=== PATIENT | female | born 1990 | race Caucasian/White ===

== ENCOUNTER 2016-05-23 17:45 | Emergency (ER) | payer MEDICAID ==
[~2016-05-23] VITALS: Ht 172.7 cm; Wt 66.4 kg
[~2016-05-23 17:45] MED LIST: ADVIL200 MG PO; AMOXICILLIN 50500 MG PO; ANAPROX DS550 MG PO; ANXIETY MED; ATIVAN 0.50.5 MG/TAB PO; BACTRIM DS 8001 TAB PO; BCP TD; BUSPAR5 MG PO; CEPHALEXIN500 M1 PO; CLARITIN 1010 MG/TAB; CLEOCIN HC150 MG/CAP PO; DOXYCYCLINE 10100 MG PO; FERROUS SULFATE65 MG PO; FLEXERIL 1010 MG/TAB PO; IBU-6600 MG PO; IRON325 M1 PO; LIORESAL 1010 MG/TAB PO; LORTAB 5/500 501 TAB PO; MOBIC15 MG PO; NAPROSYN500 MG PO; NAPROXEN EC500 MG PO; NAPROXEN250 MG PO; NO HOME MEDICATIONS; NORCO 325 MG-51 TAB PO; PEN-VEE K500 MG PO; PENICILLIN250 MG PO; PERCOCET 325 MG1 TA2 PO; PHENERGAN 25 TA25 MG PO; PHENERGAN W/CO120 ML PO; POLYMYXIN B/TRIMETH OU; PREDNISONE20 MG PO; PRENATAL1 TA1 PO; SENOKOT S 50 MG1 TAB PO; SPRINTEC 35 MCG1 TAB PO; TUSS PO; TYLENOL W/COD1 UDTAB PO; ULTRAM 50MG TAB50 MG PO; VIBRID PO; VICODIN 5/5001 UDTAB PO; VIIBRYD20 MG PO; XANAX 0.5MG0.5 MG PO; ZITHROMAX 250M250 MG PO; ZOFRAN 4MG T4 MG/TAB PO; ZOVIRAX5% TP; ZOVIRAX800 MG PO; vybrid PO
[2016-05-23 18:14] VITALS: BP 121/71; TEMP 98.5
[2016-05-23] MEDS ORDERED: IBU800 M1 PO (18:24)
[2016-05-23] MEDS ORDERED: VOLTAREN 75 DR75 MG PO (19:09)
[2016-05-23] MEDS ORDERED: NORCO 325 MG-51 TAB PO (19:09)
[2016-05-23 19:30] VITALS: PULSE 92
== END 2016-05-23 19:31 | disposition home or self-care (01) ==
LOC: COL.ER 17:45
DX: S32.2XXA Fracture of coccyx, initial encounter for closed fracture (principal); W00.2XXA Other fall from one level to another due to ice and snow, initial encounter

== ENCOUNTER 2016-06-13 17:37 | Emergency (ER) | payer MEDICAID ==
[~2016-06-13] VITALS: Ht 172.7 cm; Wt 68.2 kg
[~2016-06-13 17:37] MED LIST changes: +IBU800 M1 PO; +VOLTAREN 75 DR75 MG PO
[2016-06-13 17:38] VITALS: BP 103/66; TEMP 98.2
[2016-06-13] MEDS ORDERED: AMOXICILLIN 50500 MG PO (18:02)
[2016-06-13] MEDS ORDERED: ULTRAM 50MG TAB50 MG PO (18:02)
[2016-06-13 18:13] VITALS: PULSE 72
== END 2016-06-13 18:17 | disposition home or self-care (01) ==
LOC: COL.ER 17:37
DX: K08.89 Other specified disorders of teeth and supporting structures (principal)

== ENCOUNTER 2016-09-07 17:05 | Emergency (ER) | payer SELFPAY ==
[~2016-09-07] VITALS: Ht 172.7 cm; Wt 68.2 kg
[2016-09-07 17:07] VITALS: TEMP 98.5
[2016-09-07 17:54] VITALS: BP 131/73; PULSE 98
== END 2016-09-07 18:03 | disposition home or self-care (01) ==
LOC: COL.ER 17:05
DX: S53.402A Unspecified sprain of left elbow, initial encounter (principal); X50.0XXA Overexertion from strenuous movement or load, initial encounter; Y92.830 Public park as the place of occurrence of the external cause; F17.210 Nicotine dependence, cigarettes, uncomplicated

== ENCOUNTER 2016-09-13 17:01 | Emergency (ER) | payer SELFPAY ==
[~2016-09-13] VITALS: Ht 172.7 cm; Wt 68.2 kg
[2016-09-13 17:04] VITALS: BP 122/64; TEMP 97.8
[2016-09-13] MEDS ORDERED: FLEXERIL 1010 MG/TAB PO (17:52)
[2016-09-13 17:54] LABS: PH 6 (5-8); SQUAMOUS EPITHELIAL 0-2 /hpf; URINE APPEARANCE Clear; URINE BACTERIA None Seen /hpf; URINE BILIRUBIN Negative (NEGATIVE); URINE BLOOD 1+ (NEGATIVE); URINE COLOR Yellow; URINE GLUCOSE Negative (NEGATIVE); URINE KETONE Negative (NEGATIVE); URINE UROBILINOGEN Negative (NEGATIVE); URINE WBC 0-2 /hpf
[2016-09-13 18:14] VITALS: PULSE 90
== END 2016-09-13 18:14 | disposition home or self-care (01) ==
LOC: COL.ER 17:01
PROVIDERS: Emergency Medicine
DX: S39.011A Strain of muscle, fascia and tendon of abdomen, initial encounter (principal); X58.XXXA Exposure to other specified factors, initial encounter
CPT/HCPCS: J1885

== ENCOUNTER 2016-11-07 01:02 | Emergency (ER) | payer SELFPAY ==
[~2016-11-07] VITALS: Ht 172.7 cm; Wt 68.2 kg
[2016-11-07 01:04] VITALS: TEMP 98.2
[2016-11-07] MEDS ORDERED: NATURAL IRON65 MG PO (01:07)
[2016-11-07 01:44] LABS: BASO % 0.3 % (0.0-2.0); EOS # 0.2 (0.0-0.7); EOS % 1.4 % (0-4.0); GRAN # 6.7 (1.4-6.5); GRAN % 56.1 % (42.2-75.2); LYMPH # 4.3 (1.2-3.4); LYMPH % 36.3 % (20.0-51.0); MEAN CELL VOLUME 91 fl (80.0-100.0); MEAN CORPUSCULAR HGB CONC 34 g/dl (33.0-37.0); MEAN PLATELET VOLUME 9.5 fl (7.4-10.4); MONO # 0.7 (0.1-0.6); MONO % 5.6 % (1.7-9.3); PLATELET COUNT 236 K/mm3 (130-400); REDCELL DISTRIBUTION WIDTH-CV 12.5 % (11.5-14.5); WHITE BLOOD COUNT 11.9 K/mm3 (4.8-10.8)
[2016-11-07 01:45] LABS: HEMATOCRIT 33.7 % (37.0-47.0); HEMOGLOBIN 11.6 g/dl (12.5-16.0); MEAN CORPUSCULAR HEMOGLOBIN 31 pg (27.0-31.0)
[2016-11-07 01:54] LABS: ADJUSTED CALCIUM 9.5 mg/dL (8.4-10.2); ALANINE AMINOTRANSFERASE 25 U/L (9-52); ALBUMIN 4.5 gm/dL (3.5-5.0); ALKALINE PHOSPHATASE 78 U/L (50-136); ANION GAP 13 mmol/L (7-16); BILIRUBIN,TOTAL 0.3 mg/dL (0.0-1.0); BLOOD UREA NITROGEN 14 mg/dL (7-17); CALCIUM 9.9 mg/dL (8.4-10.2); CARBON DIOXIDE 20 mmol/L (22-30); CHLORIDE 105 mmol/L (98-107); CREATININE, serum 0.68 mg/dL (0.52-1.25); GLUCOSE 98 mg/dL (74-106); POTASSIUM 3.4 mmol/L (3.4-5.0); SODIUM 138 mmol/L (137-145); TOTAL PROTEIN 7.4 gm/dL (6.4-8.2)
[2016-11-07 02:10] LABS: TROPONIN-I < 0.012 ng/mL (0.000-0.034)
[2016-11-07 02:15] LABS: AMPHETAMINE URINE NEGATIVE; BARBITURATES URINE NEGATIVE; BENZODIAZEPINES URINE NEGATIVE; BUPRENORPHINE URINE NEGATIVE; METHADONE URINE NEGATIVE; OPIATES URINE NEGATIVE; OXYCODONE URINE POSITIVE; PHENCYCLIDINE URINE NEGATIVE; PROPOXYPHENE URINE NEGATIVE; THC CANNABINOIDS URINE NEGATIVE
[2016-11-07 03:07] VITALS: BP 109/58; PULSE 69
== END 2016-11-07 03:07 | disposition home or self-care (01) ==
LOC: COL.ER 01:02
PROVIDERS: Physician Assistant Medical
DX: F41.9 Anxiety disorder, unspecified (principal); R00.2 Palpitations; G89.29 Other chronic pain; M25.559 Pain in unspecified hip; M25.569 Pain in unspecified knee; F17.210 Nicotine dependence, cigarettes, uncomplicated

== ENCOUNTER 2016-11-14 01:29 | Emergency (ER) | payer MEDICAID ==
[~2016-11-14] VITALS: Ht 172.7 cm; Wt 68.2 kg
[~2016-11-14 01:29] MED LIST changes: +NATURAL IRON65 MG PO
[2016-11-14 01:30] VITALS: BP 123/60; PULSE 93; TEMP 98.1
[2016-11-14] MEDS ORDERED: XANAX 1MG1 MG PO (01:51)
== END 2016-11-14 02:05 | disposition home or self-care (01) ==
LOC: COL.ER 01:29
DX: F41.9 Anxiety disorder, unspecified (principal)

== ENCOUNTER 2016-12-15 10:59 | Emergency (ER) | payer SELFPAY ==
[~2016-12-15] VITALS: Ht 172.7 cm; Wt 68.2 kg
[~2016-12-15 10:59] MED LIST changes: +XANAX 1MG1 MG PO
[2016-12-15 11:05] VITALS: BP 104/65; PULSE 90; TEMP 98.9
[2016-12-15] MEDS ORDERED: ATARAX 25MG25 MG/TAB PO (12:51)
== END 2016-12-15 12:56 | disposition home or self-care (01) ==
LOC: COL.ER 10:59
DX: F41.9 Anxiety disorder, unspecified (principal); F17.210 Nicotine dependence, cigarettes, uncomplicated; Z98.890 Other specified postprocedural states

== ENCOUNTER 2016-12-15 20:58 | Emergency (ER) | payer SELFPAY ==
[~2016-12-15] VITALS: Ht 172.7 cm; Wt 68.2 kg
[~2016-12-15 20:58] MED LIST changes: +ATARAX 25MG25 MG/TAB PO
[2016-12-15 21:01] VITALS: BP 120/62; PULSE 95; TEMP 97.7
== END 2016-12-15 22:03 | disposition home or self-care (01) ==
LOC: COL.ER 20:58
DX: F41.9 Anxiety disorder, unspecified (principal); F17.210 Nicotine dependence, cigarettes, uncomplicated; Z87.59 Personal history of other complications of pregnancy, childbirth and the puerperium

== ENCOUNTER 2016-12-18 17:04 | Emergency (ER) | payer SELFPAY ==
[~2016-12-18] VITALS: Ht 172.7 cm; Wt 66.3 kg
[2016-12-18 17:10] VITALS: BP 123/64; TEMP 98.8
[2016-12-18 19:11] VITALS: PULSE 74
== END 2016-12-18 19:11 | disposition home or self-care (01) ==
LOC: COL.ER 17:04
DX: F41.9 Anxiety disorder, unspecified (principal); F17.210 Nicotine dependence, cigarettes, uncomplicated

== ENCOUNTER 2016-12-19 23:14 | Emergency (ER) | payer SELFPAY ==
[~2016-12-19] VITALS: Ht 172.7 cm; Wt 66.5 kg
[2016-12-19 23:19] VITALS: BP 133/75; TEMP 98.9
[2016-12-20 00:32] VITALS: PULSE 80
[2016-12-21] MEDS ORDERED: ATARAX50 MG PO (16:42)
== END 2016-12-20 00:34 | disposition home or self-care (01) ==
LOC: COL.ER 23:14
DX: F41.9 Anxiety disorder, unspecified (principal); F60.9 Personality disorder, unspecified

== ENCOUNTER 2016-12-21 15:50 | Emergency (ER) | payer SELFPAY ==
[~2016-12-21] VITALS: Ht 172.7 cm; Wt 63.6 kg
[2016-12-21 15:52] VITALS: BP 117/72; PULSE 99; TEMP 99.8
[2016-12-21] MEDS ORDERED: ATARAX50 MG PO (16:42)
== END 2016-12-21 17:01 | disposition home or self-care (01) ==
LOC: COL.ER 15:50
DX: F41.9 Anxiety disorder, unspecified (principal); F17.210 Nicotine dependence, cigarettes, uncomplicated

== ENCOUNTER 2017-01-29 11:10 | Emergency (ER) | payer SELFPAY ==
[~2017-01-29] VITALS: Ht 172.7 cm; Wt 66.4 kg
[~2017-01-29 11:10] MED LIST changes: +ATARAX50 MG PO
[2017-01-29 11:21] VITALS: BP 105/67; PULSE 81; TEMP 98.2
== END 2017-01-29 14:00 | disposition home or self-care (01) ==
LOC: COL.ER 11:10
DX: J02.9 Acute pharyngitis, unspecified (principal); R07.81 Pleurodynia; F17.210 Nicotine dependence, cigarettes, uncomplicated

== ENCOUNTER 2017-02-08 20:12 | Emergency (ER) | payer SELFPAY ==
[~2017-02-08] VITALS: Ht 172.7 cm; Wt 67.3 kg
[2017-02-08 20:17] VITALS: BP 117/61; TEMP 98.1
[2017-02-08] MEDS ORDERED: ZOLOFT 50MG50 MG PO (20:20)
[2017-02-08] MEDS ORDERED: INDERAL 10MG10 MG PO (20:21)
[2017-02-08] MEDS ORDERED: PREDNISONE20 MG PO (21:42)
[2017-02-08] MEDS ORDERED: ZITHROMAX Z PA250 MG PO (21:42)
[2017-02-08 21:43] VITALS: PULSE 76
== END 2017-02-08 21:49 | disposition home or self-care (01) ==
LOC: COL.ER 20:12
DX: J20.9 Acute bronchitis, unspecified (principal); F17.200 Nicotine dependence, unspecified, uncomplicated; F41.9 Anxiety disorder, unspecified; F32.9 Major depressive disorder, single episode, unspecified
CPT/HCPCS: J7512

== ENCOUNTER 2017-02-20 18:00 | Emergency (ER) | payer SELFPAY ==
[~2017-02-20] VITALS: Ht 172.7 cm; Wt 66.4 kg
[~2017-02-20 18:00] MED LIST changes: +INDERAL 10MG10 MG PO; +ZITHROMAX Z PA250 MG PO; +ZOLOFT 50MG50 MG PO
[2017-02-20 18:03] VITALS: BP 101/65; TEMP 98.3
[2017-02-20 19:53] VITALS: PULSE 80
== END 2017-02-20 20:06 | disposition home or self-care (01) ==
LOC: COL.ER 18:00
DX: F41.9 Anxiety disorder, unspecified (principal); R07.1 Chest pain on breathing; F17.210 Nicotine dependence, cigarettes, uncomplicated

== ENCOUNTER 2017-04-19 11:53 | Emergency (ER) | payer SELFPAY ==
[~2017-04-19] VITALS: Ht 172.7 cm; Wt 63.6 kg
[2017-04-19 11:54] VITALS: TEMP 97.6
[2017-04-19] MEDS ORDERED: SPRINTEC 35 MCG1 TAB PO (11:58)
[2017-04-19 14:05] VITALS: BP 110/58; PULSE 77
== END 2017-04-19 14:06 | disposition home or self-care (01) ==
LOC: COL.ER 11:53
DX: F41.9 Anxiety disorder, unspecified (principal); F17.210 Nicotine dependence, cigarettes, uncomplicated

== ENCOUNTER 2017-05-01 17:43 | Emergency (ER) | payer SELFPAY ==
[~2017-05-01] VITALS: Ht 172.7 cm; Wt 63.6 kg
[2017-05-01 17:44] VITALS: BP 113/65; TEMP 98.6
[2017-05-01] MEDS ORDERED: AMOXICILLIN 50500 MG PO (18:00)
[2017-05-01 18:12] VITALS: PULSE 90
== END 2017-05-01 18:13 | disposition home or self-care (01) ==
LOC: COL.ER 17:43
DX: K08.89 Other specified disorders of teeth and supporting structures (principal); F41.9 Anxiety disorder, unspecified

== ENCOUNTER 2017-06-01 18:23 | Emergency (ER) | payer SELFPAY ==
[~2017-06-01] VITALS: Ht 172.7 cm; Wt 63.6 kg
[2017-06-01 18:27] VITALS: BP 104/65; TEMP 97.9
[2017-06-01 20:54] VITALS: PULSE 83
== END 2017-06-01 20:55 | disposition home or self-care (01) ==
LOC: COL.ER 18:23
DX: F41.9 Anxiety disorder, unspecified (principal); F17.210 Nicotine dependence, cigarettes, uncomplicated; Z87.59 Personal history of other complications of pregnancy, childbirth and the puerperium

== ENCOUNTER 2017-06-02 12:22 | Emergency (ER) | payer SELFPAY ==
[~2017-06-02] VITALS: Ht 172.7 cm; Wt 63.6 kg
[2017-06-02 12:29] VITALS: BP 112/69; PULSE 87; TEMP 98.5
[2017-06-03] MEDS ORDERED: PRILOSEC 20MG20 MG PO (19:08)
== END 2017-06-02 15:08 | disposition home or self-care (01) ==
LOC: COL.ER 12:22
DX: K21.9 Gastro-esophageal reflux disease without esophagitis (principal); F17.210 Nicotine dependence, cigarettes, uncomplicated

== ENCOUNTER 2017-06-03 19:05 | Emergency (ER) | payer SELFPAY ==
[~2017-06-03] VITALS: Ht 172.7 cm; Wt 63.6 kg
[2017-06-03] MEDS ORDERED: PRILOSEC 20MG20 MG PO (19:08)
[2017-06-03 19:09] VITALS: BP 103/56; TEMP 98.3
[2017-06-03 20:36] LABS: COLLECTION METHOD CLEAN CATCH
[2017-06-03 20:39] LABS: BASO % 0.3 % (0.0-2.0); EOS # 0.1 (0.0-0.7); EOS % 1.4 % (0-4.0); GRAN # 5.8 (1.4-6.5); GRAN % 62.3 % (42.2-75.2); HEMATOCRIT 34.5 % (37.0-47.0); HEMOGLOBIN 11.8 g/dl (12.5-16.0); LYMPH # 2.9 (1.2-3.4); LYMPH % 30.7 % (20.0-51.0); MEAN CELL VOLUME 95 fl (80.0-100.0); MEAN CORPUSCULAR HEMOGLOBIN 32 pg (27.0-31.0); MEAN CORPUSCULAR HGB CONC 34 g/dl (33.0-37.0); MEAN PLATELET VOLUME 9.8 fl (7.4-10.4); MONO # 0.5 (0.1-0.6); PLATELET COUNT 224 K/mm3 (130-400); RED BLOOD COUNT 3.65 M/mm3 (4.10-5.30); REDCELL DISTRIBUTION WIDTH-CV 12.3 % (11.5-14.5)
[2017-06-03 20:42] LABS: MUCOUS Present /lpf; PH 6 (5-8); SQUAMOUS EPITHELIAL 0-2 /hpf; URINE APPEARANCE Clear; URINE BACTERIA None Seen /hpf; URINE BILIRUBIN Negative (NEGATIVE); URINE BLOOD 1+ (NEGATIVE); URINE COLOR Straw; URINE GLUCOSE Negative (NEGATIVE); URINE KETONE Negative (NEGATIVE); URINE LEUKOCYTE ESTERASE Negative (NEGATIVE); URINE NITRATE Negative (NEGATIVE); URINE PROTEIN(semi-quant) Negative (NEGATIVE); URINE RBC 0-2 /hpf; URINE UROBILINOGEN Negative (NEGATIVE)
[2017-06-03 20:59] LABS: ALBUMIN 4.9 gm/dL (3.5-5.0); BILIRUBIN,TOTAL 0.3 mg/dL (0.0-1.0); CALCIUM 9.6 mg/dL (8.4-10.2); CREATININE, serum 0.66 mg/dL (0.52-1.25); POTASSIUM 3.8 mmol/L (3.4-5.0); TOTAL PROTEIN 7.6 gm/dL (6.4-8.2)
[2017-06-03 22:12] VITALS: PULSE 60
== END 2017-06-03 22:13 | disposition home or self-care (01) ==
LOC: COL.ER 19:05
PROVIDERS: Nurse Practitioner Primary Care
DX: K21.9 Gastro-esophageal reflux disease without esophagitis (principal); F41.9 Anxiety disorder, unspecified; F17.210 Nicotine dependence, cigarettes, uncomplicated; Z87.42 Personal history of other diseases of the female genital tract

== ENCOUNTER 2017-07-03 15:05 | Emergency (ER) | payer SELFPAY ==
[~2017-07-03] VITALS: Ht 172.7 cm; Wt 63.6 kg
[~2017-07-03 15:05] MED LIST changes: +PRILOSEC 20MG20 MG PO
[2017-07-03 15:07] VITALS: BP 113/60; PULSE 84; TEMP 99
[2017-07-03 16:00] LABS: BASO % 0.3 % (0.0-2.0); EOS # 0.1 (0.0-0.7); GRAN # 4.7 (1.4-6.5); GRAN % 64.9 % (42.2-75.2); LYMPH % 28.5 % (20.0-51.0); MEAN CELL VOLUME 95 fl (80.0-100.0); MEAN CORPUSCULAR HGB CONC 34 g/dl (33.0-37.0); MEAN PLATELET VOLUME 9.3 fl (7.4-10.4); MONO # 0.4 (0.1-0.6); MONO % 5.2 % (1.7-9.3); PLATELET COUNT 266 K/mm3 (130-400); RED BLOOD COUNT 3.63 M/mm3 (4.10-5.30); REDCELL DISTRIBUTION WIDTH-CV 12.4 % (11.5-14.5)
[2017-07-03 16:02] LABS: HEMATOCRIT 34.5 % (37.0-47.0); HEMOGLOBIN 11.7 g/dl (12.5-16.0); MEAN CORPUSCULAR HEMOGLOBIN 32 pg (27.0-31.0)
[2017-07-03 16:08] LABS: ALANINE AMINOTRANSFERASE 26 U/L (9-52); ALBUMIN 4.6 gm/dL (3.5-5.0); ALKALINE PHOSPHATASE 54 U/L (50-136); ANION GAP 8 mmol/L (7-16); AST,SGOT 19 U/L (15-37); BILIRUBIN,TOTAL 0.2 mg/dL (0.0-1.0); BLOOD UREA NITROGEN 13 mg/dL (7-17); CALCIUM 9.2 mg/dL (8.4-10.2); CARBON DIOXIDE 24 mmol/L (22-30); CHLORIDE 105 mmol/L (98-107); CREATININE, serum 0.58 mg/dL (0.52-1.25); GLUCOSE 94 mg/dL (74-106); LIPASE 27 U/L (23-300); POTASSIUM 4.1 mmol/L (3.4-5.0); SODIUM 137 mmol/L (137-145); TOTAL PROTEIN 7.4 gm/dL (6.4-8.2)
[2017-07-03 16:30] LABS: TROPONIN-I < 0.012 ng/mL (0.000-0.034)
== END 2017-07-03 16:38 | disposition home or self-care (01) ==
LOC: COL.ER 15:05
PROVIDERS: Physician Assistant
DX: F41.9 Anxiety disorder, unspecified (principal); F17.210 Nicotine dependence, cigarettes, uncomplicated

== ENCOUNTER 2017-07-23 17:55 | Emergency (ER) | payer SELFPAY ==
[~2017-07-23] VITALS: Ht 172.7 cm; Wt 65.4 kg
[2017-07-23 17:57] VITALS: BP 133/76; PULSE 103; TEMP 98.9
[2017-07-23] MEDS ORDERED: FLEXERIL 1010 MG/TAB PO (18:43)
== END 2017-07-23 19:03 | disposition home or self-care (01) ==
LOC: COL.ER 17:55
DX: S16.1XXA Strain of muscle, fascia and tendon at neck level, initial encounter (principal); S00.83XA Contusion of other part of head, initial encounter; F41.9 Anxiety disorder, unspecified; F17.210 Nicotine dependence, cigarettes, uncomplicated; Y04.2XXA Assault by strike against or bumped into by another person, initial encounter; Y92.009 Unspecified place in unspecified non-institutional (private) residence as the place of occurrence of the external cause

== ENCOUNTER 2017-09-24 02:50 | Emergency (ER) | payer SELFPAY ==
[~2017-09-24] VITALS: Ht 172.7 cm; Wt 63.6 kg
[2017-09-24 02:53] VITALS: BP 115/59; TEMP 97
[2017-09-24 03:43] VITALS: PULSE 68
== END 2017-09-24 03:40 | disposition home or self-care (01) ==
LOC: COL.ER 02:50
DX: F41.9 Anxiety disorder, unspecified (principal)

== ENCOUNTER 2017-10-02 19:04 | Emergency (ER) | payer SELFPAY ==
[~2017-10-02] VITALS: Ht 172.7 cm; Wt 63.6 kg
[2017-10-02 19:06] VITALS: BP 111/67; TEMP 98.1
[2017-10-02] MEDS ORDERED: ATARAX50 MG PO (20:37)
[2017-10-02 21:14] VITALS: PULSE 81
== END 2017-10-02 21:06 | disposition home or self-care (01) ==
LOC: COL.ER 19:04
DX: F41.0 Panic disorder [episodic paroxysmal anxiety] (principal); K21.9 Gastro-esophageal reflux disease without esophagitis; F43.10 Post-traumatic stress disorder, unspecified; F17.210 Nicotine dependence, cigarettes, uncomplicated

== ENCOUNTER 2018-02-14 22:18 | Emergency (ER) | payer SELFPAY ==
[~2018-02-14] VITALS: Ht 172.7 cm; Wt 63.6 kg
[2018-02-14 23:20] LABS: COLLECTION METHOD CLEAN CATCH
[2018-02-14 23:25] LABS: MUCOUS Present /lpf; PH 6 (5-8); SQUAMOUS EPITHELIAL 0-2 /hpf; URINE APPEARANCE Clear; URINE BACTERIA None Seen /hpf; URINE BILIRUBIN Negative (NEGATIVE); URINE BLOOD 1+ (NEGATIVE); URINE COLOR Straw; URINE GLUCOSE Negative (NEGATIVE); URINE KETONE Negative (NEGATIVE); URINE LEUKOCYTE ESTERASE Negative (NEGATIVE); URINE NITRATE Negative (NEGATIVE); URINE PROTEIN(semi-quant) Negative (NEGATIVE); URINE RBC 0-2 /hpf; URINE UROBILINOGEN Negative (NEGATIVE)
[2018-02-14 23:33] LABS: TRICYCLIC ANTIDEPRESS URINE NEGATIVE
[2018-02-15] MEDS ORDERED: ATARAX50 MG PO (00:03)
[2018-02-15 00:15] VITALS: BP 106/59; PULSE 72; TEMP 98.2
== END 2018-02-15 00:57 | disposition home or self-care (01) ==
LOC: COL.ER 22:18
PROVIDERS: Physician Assistant
DX: F41.0 Panic disorder [episodic paroxysmal anxiety] (principal); F17.210 Nicotine dependence, cigarettes, uncomplicated

== ENCOUNTER 2018-04-06 23:09 | Emergency (ER) | payer SELFPAY ==
[~2018-04-06] VITALS: Ht 172.7 cm; Wt 63.6 kg
[2018-04-06 23:13] VITALS: BP 105/59; PULSE 102; TEMP 98.9
[2018-04-06] MEDS ORDERED: AMOXICILLIN 8751 TAB PO (23:39)
[2018-04-06] MEDS ORDERED: NATURAL IRON65 MG (23:41)
== END 2018-04-07 00:02 | disposition home or self-care (01) ==
LOC: COL.ER 23:09
DX: K02.9 Dental caries, unspecified (principal)

== ENCOUNTER 2018-04-11 23:44 | Emergency (ER) | payer SELFPAY ==
[~2018-04-11] VITALS: Ht 172.7 cm; Wt 65.9 kg
[~2018-04-11 23:44] MED LIST changes: +AMOXICILLIN 8751 TAB PO; +NATURAL IRON65 MG
[2018-04-11 23:47] VITALS: BP 107/74; TEMP 98.8
[2018-04-12] MEDS ORDERED: XANAX 0.5MG0.5 MG PO (00:07)
[2018-04-12] MEDS ORDERED: ZOFRAN ODT4 MG PO (00:20)
[2018-04-12 00:29] VITALS: PULSE 89
== END 2018-04-12 00:29 | disposition home or self-care (01) ==
LOC: COL.ER 23:44
DX: K08.89 Other specified disorders of teeth and supporting structures (principal); F17.210 Nicotine dependence, cigarettes, uncomplicated

== ENCOUNTER 2019-05-09 19:57 | Emergency (ER) | payer SELFPAY ==
[~2019-05-09] VITALS: Ht 172.7 cm; Wt 65.1 kg
[~2019-05-09 19:57] MED LIST changes: +ZOFRAN ODT4 MG PO
[2019-05-09 20:14] VITALS: TEMP 97.8
[2019-05-09 21:20] LABS: BASO % 0.4 % (0.0-2.0); EOS # 0.1 (0.0-0.7); EOS % 1.4 % (0-4.0); GRAN # 5.5 (1.4-6.5); GRAN % 67.2 % (42.2-75.2); HEMOGLOBIN 11.8 g/dl (12.5-16.0); LYMPH # 2.1 (1.2-3.4); LYMPH % 25.8 % (20.0-51.0); MEAN CELL VOLUME 95 fl (80.0-100.0); MEAN CORPUSCULAR HEMOGLOBIN 32 pg (27.0-31.0); MEAN CORPUSCULAR HGB CONC 33 g/dl (33.0-37.0); MEAN PLATELET VOLUME 10.2 fl (7.4-10.4); MONO # 0.4 (0.1-0.6); MONO % 4.8 % (1.7-9.3); PLATELET COUNT 237 K/mm3 (130-400); RED BLOOD COUNT 3.75 M/mm3 (4.10-5.30); REDCELL DISTRIBUTION WIDTH-CV 13.2 % (11.5-14.5)
[2019-05-09 21:25] LABS: ALBUMIN 4.4 gm/dL (3.5-5.0); BILIRUBIN,TOTAL 0.2 mg/dL (0.0-1.0); CALCIUM 8.9 mg/dL (8.4-10.2); CREATININE, serum 0.54 (0.52-1.25); POTASSIUM 3.8 mmol/L (3.4-5.0); TOTAL PROTEIN 7.3 gm/dL (6.4-8.2)
[2019-05-09 21:26] LABS: HEMATOCRIT 35.7 % (37.0-47.0)
[2019-05-09 22:17] LABS: COLLECTION METHOD CLEAN CATCH
[2019-05-09 22:23] LABS: MUCOUS Present /lpf; PH 6 (5-8); SQUAMOUS EPITHELIAL 0-2 /hpf; URINE APPEARANCE Clear; URINE BACTERIA None Seen /hpf; URINE BILIRUBIN Negative (NEGATIVE); URINE BLOOD 2+ (NEGATIVE); URINE COLOR Yellow; URINE GLUCOSE Negative (NEGATIVE); URINE KETONE Trace (NEGATIVE); URINE LEUKOCYTE ESTERASE Negative (NEGATIVE); URINE NITRATE Negative (NEGATIVE); URINE PROTEIN(semi-quant) Negative (NEGATIVE); URINE UROBILINOGEN Negative (NEGATIVE)
[2019-05-09 22:50] VITALS: BP 97/60; PULSE 66
== END 2019-05-09 22:52 | disposition home or self-care (01) ==
LOC: COL.ER 19:57
PROVIDERS: Emergency Medicine
DX: R10.30 Lower abdominal pain, unspecified (principal); E28.2 Polycystic ovarian syndrome
CPT/HCPCS: J1885; J2405; J3010; J7030

== ENCOUNTER 2019-06-17 10:03 | Emergency (ER) | payer SELFPAY ==
[~2019-06-17] VITALS: Ht 172.7 cm; Wt 66.4 kg
[2019-06-17 10:29] VITALS: BP 104/58; TEMP 97.4
[2019-06-17] MEDS ORDERED: SPRINTEC 35 MCG1 TAB PO (11:15)
[2019-06-17 11:37] LABS: HEMOGLOBIN 11.3 g/dl (12.5-16.0); MEAN CELL VOLUME 96 fl (80.0-100.0); MEAN CORPUSCULAR HEMOGLOBIN 32 pg (27.0-31.0); MEAN CORPUSCULAR HGB CONC 34 g/dl (33.0-37.0); MEAN PLATELET VOLUME 9.6 fl (7.4-10.4); PLATELET COUNT 176 K/mm3 (130-400); RED BLOOD COUNT 3.51 M/mm3 (4.10-5.30); REDCELL DISTRIBUTION WIDTH-CV 12.9 % (11.5-14.5)
[2019-06-17 11:37] LABS: COLLECTION METHOD CLEAN CATCH
[2019-06-17 11:48] LABS: ALANINE AMINOTRANSFERASE 17 U/L (9-52); ALBUMIN 4.3 gm/dL (3.5-5.0); ALKALINE PHOSPHATASE 56 U/L (50-136); ANION GAP 10 mmol/L (7-16); AST,SGOT 15 U/L (15-37); BILIRUBIN,TOTAL 0.2 mg/dL (0.0-1.0); BLOOD UREA NITROGEN 11 mg/dL (7-17); CARBON DIOXIDE 22 mmol/L (22-30); CHLORIDE 109 mmol/L (98-107); CREATININE, serum 0.53 (0.52-1.25); GLUCOSE 99 mg/dL (74-106); HEMATOCRIT 33.6 % (37.0-47.0); LIPASE 21 U/L (23-300); POTASSIUM 3.7 mmol/L (3.4-5.0); SODIUM 141 mmol/L (137-145); TOTAL PROTEIN 7.1 gm/dL (6.4-8.2)
[2019-06-17 12:05] LABS: TROPONIN-I < 0.012 ng/mL (0.000-0.035)
[2019-06-17 12:07] LABS: MUCOUS Present /lpf; PH 5 (5-8); SQUAMOUS EPITHELIAL 0-2 /hpf; URINE APPEARANCE Clear; URINE BACTERIA None Seen /hpf; URINE BILIRUBIN Negative (NEGATIVE); URINE BLOOD 2+ (NEGATIVE); URINE COLOR Yellow; URINE GLUCOSE Negative (NEGATIVE); URINE KETONE Negative (NEGATIVE); URINE LEUKOCYTE ESTERASE Negative (NEGATIVE); URINE NITRATE Negative (NEGATIVE); URINE PROTEIN(semi-quant) Negative (NEGATIVE); URINE RBC 0-2 /hpf; URINE UROBILINOGEN Negative (NEGATIVE)
[2019-06-17 12:35] LABS: BAND 4 % (0-10); LYMPHOCYTE 6 % (20.0-51.0); NEUTROPHILS 90 % (42.0-75.2); PLATELET ESTIMATE NORMAL (NORMAL)
[2019-06-17] MEDS ORDERED: NORCO 325 MG-51 TAB PO (14:55)
[2019-06-17] MEDS ORDERED: FLEXERIL 1010 MG/TAB PO (14:56)
[2019-06-17 15:36] VITALS: PULSE 98
== END 2019-06-17 15:36 | disposition home or self-care (01) ==
LOC: COL.ER 10:03
PROVIDERS: Emergency Medicine
DX: M25.552 Pain in left hip (principal); M54.9 Dorsalgia, unspecified
CPT/HCPCS: J2060; J7030